=== PATIENT | female | born 1990 | race Caucasian/White ===

== ENCOUNTER 2018-02-01 21:43 | Inpatient (IN) | payer BC, OTHER ==
[~2018-02-01] VITALS: Ht 172.7 cm; Wt 74.8 kg
--- NOTE | 2018-02-01 22:50 | NUR ---
INTAKE ASSESSMENT BP: 101/65, HR: 87, RR:16, SpO2: 98%, T:98.0 Pt is in stable condition and able to be admitted on the unit. Unit protocols regarding medications were explained. Pt verbalized understanding. Will continue admission upon arrival on the unit.
[2018-02-01] MEDS ORDERED: HYDROXYZINE PAMOATE 25 MG CAPSULE PO PRN (23:00)
[2018-02-01] MEDS ORDERED: ONDANSETRON 4 MG/2 ML VIAL IM PRN (23:00)
[2018-02-01] MEDS ORDERED: LOPERAMIDE HCL 2 MG CAPSULE PO PRN ×2 (23:00)
[2018-02-01] MEDS ORDERED: MAGNESIUM HYDROXIDE 30 ML LIQUID UDC PO PRN (23:00)
[2018-02-01] MEDS ORDERED: MIRALAX 17 GM POWD.PACK PO PRN (23:00)
[2018-02-01] MEDS ORDERED: MAG HYDROX/AL HYDROX/SIMETH 30 ML LIQUID UDC PO PRN (23:00)
[2018-02-01] MEDS ORDERED: IBUPROFEN 600 MG TABLET PO PRN (23:00)
[2018-02-01] MEDS ORDERED: ONDANSETRON ODT 4 MG TAB.RAPDIS SL PRN (23:00)
[2018-02-01] MEDS ORDERED: BUPRENORPHINE HCL 2 MG TAB.SUBL SL PRN (23:00)
[2018-02-01 23:24] LABS: *URINE HCG, QUAL NEGATIVE (NEGATIVE)
--- NOTE | 2018-02-01 23:30 | NUR ---
ADMISSION NOTE Pt arrived ambulatory accompanied by a DOCUMENT REVIEW ATTORNEY at [id number]. Pt is a 27 year old female admitted on 02/02/18 for medically supervised withdrawal from Opiates. Pt is full code with allergies to Rocephin and Bactrim. She reports a PMHx of anxiety, depression " I was diagnosed when I was was 11 years old" and Panic disorder " I was diagnosed in 2014." " I also have a history of Crohns disease diagnosed when I was about 7 years old. I take Remecaid infusions for that. Then I got the ileostomy in 2014. I got my thyroid removed by radiation in 2013, so I take thyroid medication. 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 I was also diagnosed with polycystic ovarian syndrome in 2015" Pt noted to be alert and oriented x4. Speech is clear and audible. Pt able to answer interview questions. Pt denies withdrawal symptoms and reports " I don't really feel major withdrawal symptoms from Heroin yet." She complains of body aches, anxiety, and difficulty sleeping. She appears to be disheveled with slumped posture,flat affect and feelings of low self esteem. Pt was recently at the hospital one week ago for surgery. Pt states " I was at [facility] for surgery. They tried to reverse my ileostomy but it wouldn't fuse together. I've been in the hospital for about a month." She is noted with ileostomy bag on the right side. She brought in her own supplies of ostomy bags and gauze. She denies any history of abuse. She denies having a PCP or a psychiatrist. She brought in home medications of Fluconazole 200 mg, Vitamin D3 2,000 unit,Levothyroxine 100 mcg, Tri-Lo Sprintec, Simethicone, Sodium Citrate 30 mL, and Spironolactone 25 mg. Medications have been reconciled. She reports having an overdose from Heroin. She stated " I overdosed in 2016 and I got Narcan but I didn't go to the hospital." Pt denies history of seizures, or black outs. She also denies history of SI and 5150. Pt reports she started using Heroin at 17 years old. She stated " I was just in a lot of pain and discomfort, so I just started using it" She is currently unemployed and lives at a sober living [facility]. She has been to multiple treatment centers, pt states " I was at [facility] and I've been there since July 2017" She reports that she has had " at least 5 " attempts at sobriety. She reported her most recent one was for 1 year and she relapsed 1 month ago. She reported she wants to get sober because, "I like being sober." She states her cause for relapse was " I was in the hospital and they were giving me pain killers. Then they had to stop the pain killers because of my history with opiates" She states her triggers for relapse are "the pain that I'm in." She states her barrier to staying sober is the pain "it's hard to manage sometimes. I waited two years to have this surgery and it didn't work" She states, " The last detox I was at was in 2014, I cant remember what it's called. I also detoxed myself when I went [facility]- Jul 2017" Pt states her support system are her parents. She denies family history of substance abuse. Pt reports after detox " I want to go back to the sober living I was at and go to [facility]" She reports using substances has affected her life because "well, I went to penitentiary and now I'm on probation." She describes her current use as: 1. Heroin IV/smoke 1 gram daily x 5 days. Last dose 0.2 gram IV on 02/01/18 at 1000. She states" I only started using the Heroin after I got out of the hospital, so its only been a few days that I've really been using it. But I'll either smoke it or shoot it" 2. Oxycodone PO 10 mg daily every 6 hours x 2 weeks. Last dose: 10 mg PO on 01/28/18. Pt states " I was receiving the Oxycodone when I was in the hospital after my surgery." 3. Morphine IV pump- " I had this when I was in the hospital for the first two weeks, it was a pump so I don't really know the dosage." Pt describes her withdrawal symptoms as: " I usually have really bad stomach problems, nausea, body aches, weakness, fatigue and abdominal cramps." Upon assessment, Heart rate regular. Denies chest pain or SOB. PERRLA, breathing is even and unlabored, lung sounds clear. Abdomen is soft and non-distended. Bowel sounds present in right quadrant. Pt's skin is warm, dry and intact. Pt noted with left and right side open skin related to drains being placed after her ileostomy reversal surgery. Picture taken and placed in the chart. Small amount of drainage noted, no bleeding. Pt also noted with surgical incision to midline abdominal section.No bleeding noted. MD aware of pt's admission. Pt oriented to room and unit. Safety measures in place. Will continue to monitor.
--- NOTE | 2018-02-01 23:35 | NUR ---
LAB Pe Electrical Engineer unable to draw labs, will try again in the morning.
[2018-02-02] VITALS: BP 95/64
[2018-02-02] MEDS: METHOCARBAMOL 750 MG TABLET PO PRN ×3 (00:03→22:54)
[2018-02-02] MEDS: diphenhydrAMINE 50 MG CAPSULE PO PRN (00:03)
[2018-02-02] MEDS: CLONIDINE HCL 0.1 MG TABLET PO PRN ×2 (00:03→08:37)
--- NOTE | 2018-02-02 00:03 | NUR ---
PRN BENADRYL/ROBAXIN/CLONIDINE Pt complains of inability to fall asleep, body aches and anxiety. PRN Benadryl, Robaxin and Clonidine administered as ordered. Safety measures in place. Will monitor effectiveness.
[2018-02-02] MEDS ORDERED: SIME125T52 PO (00:57)
[2018-02-02] MEDS ORDERED: SPIR25TA6 PO (00:57)
[2018-02-02] MEDS ORDERED: [UNRECOGNIZED DRUG - CODE] MC (00:57)
[2018-02-02] MEDS ORDERED: FLUC200T8 PO (00:57)
[2018-02-02] MEDS ORDERED: CHOL200016 PO (00:57)
[2018-02-02] MEDS ORDERED: LEVO100T10 PO (00:57)
[2018-02-02] MEDS ORDERED: NORG1TAB82 PO (00:57)
--- NOTE | 2018-02-02 01:03 | NUR ---
PRN BENADRYL/ROBAXIN AND CLONIDINE REASSESSMENT PRN medications effective. Pt is lying in bed with eyes closed noted to be asleep. Breathing is even and unlabored, safety measures in place. Will monitor.
[2018-02-02 01:47] LABS: *AMPHETAMINE, URINE NEGATIVE (NEGATIVE); *BARBITURATE, URINE NEGATIVE (NEGATIVE); *CANNABINOID, URINE NEGATIVE (NEGATIVE); *COCCAINE, URINE NEGATIVE (NEGATIVE); *OPIATE, URINE POSITIVE (NEGATIVE); *PHENCYCLIDINE SCREEN,URINE NEGATIVE (NEGATIVE)
[2018-02-02 04:00] VITALS: BP 105/68
--- NOTE | 2018-02-02 04:00 | NUR ---
COWS DEFERRED 0400 COWS deferred d/t pt lying in bed with eyes closed noted to be asleep. Breathing is even and unlabored, safety measures in place. Will monitor.
--- NOTE | 2018-02-02 07:17 | NUR ---
END OF SHIFT Pt is a 27 year old female admitted on 02/01/18 for Opiate withdrawal. She remains alert and oriented x4. She complained of body aches, anxiety and difficulty falling asleep. She denied withdrawal symptoms and did not require PRN Subutex during the shift. At 0003 she received PRN Benadryl, Robaxin and Clonidine. She slept a total of 5 hrs, Intake: 355mL, Void:x2, BM:0, Unable to accurately assess COWS. Breathing is even and unlabored, safety measures in place. Endorsed to AM shift.
[2018-02-02 08:00] VITALS: BP 95/45
--- NOTE | 2018-02-02 08:00 | NUR ---
Start of Shift Notes/COWS Assessment: Received patient in her room. Alert and verbally responsive. Flat affect. Encouraged to verbalize her feelings and concerns Appears disheveled and unkempt. Hair uncombed. Garbage seen in room and is odorous. Encouraged to maintain personal hygiene and space. She is noted to be diaphoretic with facial flushing. She is currently complaininf of 5/10 body aches, abdominal cramping and chills and hot flashes related to withdrawal. Current COWS 10 upon this assessment. Patient is a 27 year old female admitted for opiate withdrawal who is currently on PRNs to manage symptoms of opiate withdrawal. Per night report, patient was given PRN Benadryl, Robaxin and Clonidine during the night. Last COWS 4, slept for 5 hours. Educated patient on her current plan of care for the day na her medication regimen. Encourage oral fluid intake and encouraged group participation to learn new skills to prevent relapse. All needs met and attended. Will continue to monitor closely.
[2018-02-02 08:26] LABS: BASOPHILS # (AUTO) 0.1 K/uL (0.0-8.0); BASOPHILS % (AUTO) 0.9 % (0.0-2.0); EOSINOPHILS # (AUTO) 0.3 K/uL (0.0-0.7); EOSINOPHILS % (AUTO) 3.5 % (0.0-7.0); HEMATOCRIT 34.4 % (31.2-41.9); HEMOGLOBIN 11.7 g/dL (10.9-14.3); LYMPHOCYTES # (AUTO) 3.8 K/uL (20.0-40.0); LYMPHOCYTES % (AUTO) 40.8 % (20.5-51.5); MEAN CORPUSCULAR HEMOGLOBIN 30.3 uug (24.7-32.8); MEAN CORPUSCULAR HGB CONC 34 g/dL (32.3-35.6); MEAN CORPUSCULAR VOLUME 89.3 fL (75.5-95.3); MONOCYTES # (AUTO) 0.8 K/uL (2.0-10.0); MONOCYTES % (AUTO) 8.4 % (0.0-11.0); NEUTROPHILS # (AUTO) 4.3 K/uL (1.8-8.9); NEUTROPHILS % (AUTO) 46.4 % (38.5-71.5); PLATELET COUNT (AUTO) 383 K/uL (179-408); RED BLOOD CELL COUNT(AUTO) 3.85 MIL/uL (3.63-4.92); WHITE BLOOD COUNT (AUTO) 9.2 K/uL (3.8-11.8)
[2018-02-02 08:31] LABS: ETHANOL < 3 MG/DL (0-0)
[2018-02-02] MEDS: DICYCLOMINE HCL 20 MG TABLET PO PRN ×2 (08:37→22:54)
--- NOTE | 2018-02-02 08:37 | NUR ---
Clonidine/Bentyl/Robaxin PO given: PRN Clonidine, Bentyl and Clonidine given for complains of 5/10 body aches, abdominal cramping, sweating, anxiety, and chills and hot flashes. Will monitor for effectiveness.
[2018-02-02 08:52] LABS: ALANINE AMINOTRANSFERASE 34 U/L (14-59); ALKALINE PHOSPHATASE 142 U/L (50-136); AMYLASE 67 U/L (25-115); ASPARTATE AMINOTRANSFERASE 28 U/L (15-37); BILIRUBIN,TOTAL 0.4 mg/dL (0.2-1.0); CARBON DIOXIDE 26 mmol/L (21-32); CHLORIDE 100 mmol/L (98-107); CREATININE 0.8 mg/dL (0.6-1.3); GLUCOSE 92 mg/dL (74-106); LIPASE 266 U/L (73-393); MAGNESIUM 1.6 mg/dL (1.8-2.4); POTASSIUM 4.1 mmol/L (3.5-5.1); TOTAL PROTEIN, SERUM 9.3 g/dL (6.4-8.2); UREA NITROGEN, BLOOD 9 mg/dL (7-18)
[2018-02-02] MEDS ORDERED: TUBERCULIN,PURIF.PROT.DERIV. 5 TU/0.1 ML TEST ID ONE (09:00)
--- NOTE | 2018-02-02 09:37 | NUR ---
Re-assessment: Clonidine/Bentyl/Robaxin Patient verbalizes relief from anxiety, chills, hot flashes and abdominal cramping. She verbalizes her pain is now a 2 out of 10. PRN Clonidine, Bentyl and Robaxin were effective.
[2018-02-02 09:45] LABS: THYROID STIMULATING HORMONE 1.993 mIU/mL (0.358-3.740)
[2018-02-02 12:00] VITALS: BP 91/51
--- NOTE | 2018-02-02 12:00 | NUR ---
Start of Shift Notes/COWS Assessment: COWS , patient continues to present with s/s of withdrawal m/b myalgia, anxiety, agitation, stomach cramps and fatigue. Support provided. Offered PRNs. Oral fluids encouraged. Patient was unable to participate in group at this time. Will continue to monitor. Addendum: 02/02/18 at 1209 by OG HUMPHREYS LVN error in charting
--- NOTE | 2018-02-02 12:00 | NUR ---
COWS Assessment: COWS 9, patient continues to present with s/s of withdrawal m/b myalgia, anxiety, agitation, stomach cramps and fatigue. Support provided. Offered PRNs. Oral fluids encouraged. Patient was unable to participate in group at this time. Will continue to monitor.
[2018-02-02] MEDS: ACETAMINOPHEN 325 MG TABLET PO PRN (13:38)
[2018-02-02] MEDS: BUPRENORPHINE HCL 2 MG TAB.SUBL SL SCH ×2 (13:38→22:54)
--- NOTE | 2018-02-02 13:38 | NUR ---
COWS Assessment/Tylenol 650 mg/Vistaril PO given: COWS re-assessed. Noted with COWS 15 at this time. Patient is noted with facial flushing, sweating, gross tremors, anxiety, agitation, yawning, body aches and complains of generalized discomfort. Medicated patient with Tylenol 650 mg PO and Vistaril PO as ordered. 2-day Subutex taper was started at this time. Will continue to monitor.
[2018-02-02] MEDS: FLUCONAZOLE 200 MG TABLET PO SCH (13:59)
[2018-02-02] MEDS: LEVOTHYROXINE SODIUM 100 MCG TABLET PO SCH (13:59)
[2018-02-02] MEDS: TRI LO SPRINTEC PO SCH (14:00)
[2018-02-02] MEDS: SPIRONOLACTONE 25 MG TABLET PO SCH (14:00)
--- NOTE | 2018-02-02 14:38 | NUR ---
Re-assessment: Tylenol/Vistaril Patient verbalizes relief from body aches and anxiety. PRN Tylenol and Vistaril were effective.
[2018-02-02] MEDS ORDERED: MAGNESIUM OXIDE 400 MG TABLET PO ONE (15:00)
[2018-02-02 16:00] VITALS: BP 105/73
--- NOTE | 2018-02-02 16:00 | NUR ---
COWS Assessment: COWS 10, patient's COWS score decreased from a 13, but she continues to present with pupil dilation, gross tremors, anxiety, sweating, fatigue, malaise, myalgia and generalized discomfort. PRNs offered. Support provided. Patient was unable to participate in group and activities due to her withdrawal symptoms. Will continue to monitor.
--- NOTE | 2018-02-02 19:20 | NUR ---
End of Shift Notes: Patient was started on a 2-day Subutex taper to manage symptoms related to opiate withdrawal. VS monitored closely. No significant abnormalities noted. Withdrawal symptoms were closely monitored Initial COWS 10, patient presented with anxiety, agitation, muscle cramps, restlessness, abdominal cramping, chills, hot flashing, and sweats. Medicated patient with Robaxin , Bentyl and Clonidine as ordered at 0837 with help after 1 hour . At 1338, patient was medicated with Tylenol 650 mg PO and Vistaril 25mg as ordered with help. Patient's COWS score increased to 15 at 1337. Last COWS 10 at 1600. Abdominal dressing to patient's mid abdomen intact. No draining noted. Patient was unable to participate in group and activities due to her withdrawal symptoms. Appetite fair. Patient prefers to stay in his room and sleep. All needs met and attended. Will continue to monitor closely.
[2018-02-02 20:00] VITALS: BP 101/62
--- NOTE | 2018-02-02 20:00 | NUR ---
Start of Shift Patient 27 year old female admitted 02/01/2018 for Heroin and Oxycodone. Patient has a history of anxiety, depression, panic disorder, crohns disease, valley fever, thyroid removal 2013, and polycystic ovarian syndrome 2014. Patient is full code and has a regular diet. Patient has 2 closed abdominal wound incision from recent surgery covered with clean and dry dressing. Patient also with ileostomy bag in the right upper quadrant. Per report, wound care consult will be done tomorrow. Patient reported she feels flushed, tremors, and body aches. Last COWS was 10. Patient is on fall precautions, safety measures in place, side rails up X2, bed locked in low position, call light within reach. Reeducated plan of care with patient and medication side effects. Will continue to monitor.
--- NOTE | 2018-02-02 22:55 | NUR ---
PRN Bentyl and PRN Robaxin Patient c/o abdominal cramping and generalized muscle pain=7/10. Administered Bentyl 20 mg PO PRN and Robaxin 750 mg PO PRN as ordered. Will reassess.
--- NOTE | 2018-02-02 23:55 | NUR ---
Re-assessment PRN Gee and Meenu Patient stated pain level 3/10, no facial grimacing noted. Respiration even and unlabored. Safety measure in placed, bed locked in the lowest position, side rails up x2, and call light within reach. Will continue to monitor.
[2018-02-03] VITALS: BP 105/58
[2018-02-03 04:00] VITALS: BP 101/61
[2018-02-03 06:07] LABS: HEPATITIS B SURFACE AG Negative (Negative)
[2018-02-03] MEDS: LEVOTHYROXINE SODIUM 100 MCG TABLET PO SCH (07:05)
--- NOTE | 2018-02-03 07:14 | NUR ---
End of shift Patient 27 year old female admitted 02/01/2018 for Heroin and Oxycodone. Patient is on a 2 day Subutex taper for opiate withdrawal. Patient has 2 closed abdominal wound incision from recent surgery, with wound dressing observed intact, dry and clean. With wound care consult to be done today. Patient continues to report abdominal cramps and body aches. Patient is also noted to be flushed, and observed to have tremors. Last COWS was 11. Medicated patient with PRN Robaxin 750 mg, Bentyl 20mg at 2254. Patient participated in group. Patient slept for 4 hours. Patient is on fall precautions, safety measures in place, side rails up X2, bed locked in low position, call light within reach. Endorse to AM shift for continuity of care.
[2018-02-03 08:00] VITALS: BP 90/60
--- NOTE | 2018-02-03 08:20 | NUR ---
START OF SHIFT: Received Pt A/O X 4. She presents with blunted affect and depressed mood. She reports body pain 6/10 , muscle aches,stomach cramps, sweats,anxiety and restlessness. COWS 12. modified Subutex taper in progress to manage s/s of w/d. PRN Tylenol 650 mg PO and Robaxin 750 mg PO given to manage aches and pain. Will monitor effectiveness of PRN meds. Encouraged increased fluids to assist in facilitating detox process. Will continue to monitor and offer support.
[2018-02-03] MEDS: METHOCARBAMOL 750 MG TABLET PO PRN ×2 (08:45→22:12)
[2018-02-03] MEDS: ACETAMINOPHEN 325 MG TABLET PO PRN (08:46)
[2018-02-03] MEDS: FLUCONAZOLE 200 MG TABLET PO SCH (08:46)
[2018-02-03] MEDS: TRI LO SPRINTEC PO SCH (08:47)
[2018-02-03] MEDS: SPIRONOLACTONE 25 MG TABLET PO SCH (08:47)
[2018-02-03] MEDS ORDERED: [UNRECOGNIZED DRUG - OTHER] SL PRN (09:00)
[2018-02-03] MEDS: BUPRENORPHINE HCL 2 MG TAB.SUBL SL SCH ×3 (09:19→22:03)
--- NOTE | 2018-02-03 09:20 | NUR ---
Pt states PRN Tylenol and PRN Robaxin was effective. She states the aches and pains have lessened.
--- NOTE | 2018-02-03 09:43 | NUR ---
Therapist prompted client to attend twice daily group therapy sessions.
--- NOTE | 2018-02-03 11:50 | NUR ---
Pt changed her ostomy and wound nurse was assisted with dressing change and new orders for wound care.
[2018-02-03 12:00] VITALS: BP 118/74
--- NOTE | 2018-02-03 12:23 | NUR ---
WOUND CARE CONSULT: PT PRESENTS WITH ABDOMINAL INCISION WITH OPEN WOUNDS, RT LOWER ABDOMEN WOUND AND DRAIN SITES TO RT AND LEFT ABDOMEN, PRESENT ON ADMISSION. NO SIGNS OF INFECTION NOTED. ILEOSTOMY FUNCTIONING WELL. PT DOES HER POUCH CHANGES. PT STATES WILL FOLLOW UP WITH HER PRIMARY SURGEON ON THURSDAY. RECOMMENDATIONS MADE FOR WOUND CARE AND SKIN PROTECTION. DISCUSSED WITH NURSING STAFF. WILL SEE PRN. Cassy Underwood IN AGREEMENT WITH PLAN OF CARE. Addendum: 02/03/18 at 1225 by KIRT CASTAÑEDA RN Amended: Links added.
[2018-02-03] MEDS ORDERED: BUPRENORPHINE HCL 2 MG TAB.SUBL SL SCH (15:00)
[2018-02-03 16:00] VITALS: BP 104/65
--- NOTE | 2018-02-03 19:03 | NUR ---
END OF SHIFT: Pt continues on modified Subutex taper to manage s/s of w/d which include anxiety,sweats,body aches,stomach cramps and irritability.Last CIWA 5. Ileostomy bag was changed and intact. Wound care done and dressings changed. Pictures in chart. New orders per wound care nurse for wound care daily and PRN. she attended some groups and states the detox meds are effective. Will pass shift report to oncoming night nurse.
--- NOTE | 2018-02-03 19:30 | NUR ---
START OF SHIFT Patient is a 27-year-old female admitted on 02/01/18 for opiate withdrawal. Patient is currently on a modified 3-day Subutex taper, scheduled to end tomorrow; patient is tolerating well. Patient's last COWS was 10 per endorsement. Patient received PRN Robaxin and PRN Tylenol earlier today; both noted to be effective. Upon assessment, patient is alert and oriented x4. Patient appears anxious and sad. Patient complains of stomachache and generalized body aches. Patient is on fall and seizure precautions with no history of seizure. Safety measures in place, side rails up x2, bed locked in low position, call light within reach. Medications scheduled, will continue to monitor.
[2018-02-03 20:00] VITALS: BP 108/71
--- NOTE | 2018-02-03 20:00 | NUR ---
COWS 10 Patient complains of body aches and stomachache. Patient reports anxiety and restlessness. Current COWS score is 10. Will administer meds as ordered; will continue to monitor.
[2018-02-03] MEDS: HYDROXYZINE PAMOATE 25 MG CAPSULE PO PRN (22:12)
[2018-02-03] MEDS: diphenhydrAMINE 50 MG CAPSULE PO PRN (22:12)
--- NOTE | 2018-02-03 22:12 | NUR ---
PRN ROBAXIN, BENADRYL, & VISTARIL Patient reports difficulty sleeping, anxiety, and body aches. PRN Benadryl, Vistaril, and Robaxin given PO. Safety measures in place, side rails up x2, bed locked in low position, call light within reach. Will monitor for effectiveness.
--- NOTE | 2018-02-03 23:12 | NUR ---
PRN ROBAXIN, BENADRYL, & VISTARIL REASSESSMENT Patient reports some improvement in symptoms, specifically anxiety. PRN Vistaril noted to be effective. Patient states the PRN Robaxin and PRN Benadryl were mildly effective. Safety measures in place, side rails up x2, bed locked in low position, call light within reach. Will continue to monitor.
[2018-02-04] VITALS: BP 96/58
--- NOTE | 2018-02-04 | NUR ---
COWS 9 Patient complains of stomachache, body aches, anxiety, and stuffy nose. Patient has fine tremors and is slightly diaphoretic. Current COWS is 9. Will continue to monitor.
[2018-02-04] MEDS: DICYCLOMINE HCL 20 MG TABLET PO PRN (00:55)
--- NOTE | 2018-02-04 00:55 | NUR ---
PRN MOTRIN & BENTYL Patient complains of 6/10 body aches and 7/10 stomach cramps. PRN Motrin and PRN Bentyl given PO. Safety measures in place, side rails up x2, bed locked in low position, call light within reach. Will monitor for effectiveness.
--- NOTE | 2018-02-04 01:55 | NUR ---
PRN MOTRIN & BENTYL REASSESSMENT Patient is observed sleeping in bed with eyes closed, respirations even and unlabored. Unable to reassess for PRN effectiveness at this time. Safety measures in place, side rails up x2, bed locked in low position, call light within reach. Will continue to monitor.
[2018-02-04 04:00] VITALS: BP 94/54
--- NOTE | 2018-02-04 04:00 | NUR ---
COWS DEFERRED COWS deferred due to patient sleeping; to be assessed while patient is awake. Respirations even and unlabored. Safety measures in place, side rails up x2, bed locked in low position, call light within reach. Will continue to monitor.
--- NOTE | 2018-02-04 07:15 | NUR ---
END OF SHIFT Patient is a 27-year-old female admitted on 02/01/18 for opiate withdrawal. Patient is currently on a modified 3-day Subutex taper, today is that last day of taper; patient is tolerating well. Patient's last COWS was 9. Patient received the following PRN medications: Robaxin, Benadryl, Vistaril, Motrin and Bentyl. Per patient, only the PRN Vistaril was noticeably effective. Patient slept for 6 hours, total intake of 1,250mL, void x2, stool x2. Patient is on fall and seizure precautions with no history of seizure. Safety measures in place, side rails up x2, bed locked in low position, call light within reach. Will endorse to day shift.
[2018-02-04] MEDS: LEVOTHYROXINE SODIUM 100 MCG TABLET PO SCH (07:26)
--- NOTE | 2018-02-04 07:40 | NUR ---
START OF SHIFT Endorse rcvd from ongoing nurse, PRN Motrin 600mg PO generalized body aches, Robaxin 750mg PO for myalgia, Bentyl 20mg PO for abd spasms, Vistaril 50mg PO for anxiety, Benadryl 50mg PO for insomnia, client slept 7 hrs. Last CIWA 9 @ 2400. Client is in bed, lying on back, she sounds asleep, easy to arouse. RR 16, even, non-labored. Call light within reach. Will continue to monitor.
[2018-02-04 08:26] VITALS: BP 96/52
[2018-02-04] MEDS ORDERED: BUPRENORPHINE HCL 2 MG TAB.SUBL SL SCH (09:00)
--- NOTE | 2018-02-04 09:15 | NUR ---
Zero induration noted at L forearm.
[2018-02-04] MEDS: SPIRONOLACTONE 25 MG TABLET PO SCH (09:38)
[2018-02-04] MEDS: TRI LO SPRINTEC PO SCH (09:38)
[2018-02-04] MEDS: FLUCONAZOLE 200 MG TABLET PO SCH (09:38)
[2018-02-04] MEDS: HYDROXYZINE PAMOATE 25 MG CAPSULE PO PRN ×2 (10:00→21:42)
[2018-02-04] MEDS: METHOCARBAMOL 750 MG TABLET PO PRN ×2 (10:00→21:42)
--- NOTE | 2018-02-04 10:00 | NUR ---
COWS 10 & PRN Vistaril 50mg PO, Robaxin 750mg PO Client is in bed, she appears disheveled, dark circles unders eyes, dry, chapped lips, depressed mood, flat affect, tremors felt, clammy skin, and difficulty concentration. Client reports anxiety, nausea, abdominal cramps, decreased appetite, sweats, generalized body aches 7/10, and fatigue. Schedule Subutex 2mg SL and above PRN's administered. Encourage client to attend group therapy to learn skills to maintain sober. Call light within reach.
--- NOTE | 2018-02-04 11:00 | NUR ---
Reassess PRN Vistaril 50mg, Robaxin 750mg client reports slight relief from anxiety and myalgia.
[2018-02-04 12:00] VITALS: BP 104/66
--- NOTE | 2018-02-04 12:00 | NUR ---
COWS 9 Client continue to present with anxiety, flat affect, avoidant gaze. She reports feeling agitated, anxious, difficulty concentrating, and fatigue. Client decline PRN medications for management of anxiety. MD notified. Call light within reach.
--- NOTE | 2018-02-04 12:15 | NUR ---
CIWA 10 Client continue to present with anxiety, flat affect. She repots feeling agitated, anxious, a sense of panic, difficulty concentrating, and fatigue. Client decline PRN medications for management of anxiety. CAIN and notified. Call light within reach. Addendum: 02/04/18 at 1325 by DONYA MART RN wrong client
--- NOTE | 2018-02-04 12:57 | NUR ---
Therapist prompted client to attend twice daily group therapy sessions.
[2018-02-04 16:55] VITALS: BP 100/60
--- NOTE | 2018-02-04 17:00 | NUR ---
COWS 9 & wound treatment Client continue to present with anxiety, flat affect, avoidant gaze. She reports feeling agitated, anxious, difficulty concentrating, and fatigue. Wpund treatment to RT & LT abd drain sites, Mid Abd incision with open wound, and RT lower Abd wound (distal to ostomy) scat drainage noted only at last site. Client able to do dressing change and cleaning wound. Pictures taken. Client decline PRN medications for management of anxiety. MD notified. Call light within reach.
--- NOTE | 2018-02-04 19:25 | NUR ---
END OF SHIFT Endorse client to incoming nurse, client is in group therapy, a/o x 4. Client continues to present with anxiety, nausea, difficulty concentrating, and fatigue. Last COWS 9 @ 1700. Client completed 3 day Subutex taper. PRN administered and noted per protocol. Client is schedule for DC to [facility] tomorrow am. Adequate PO fluid intake 2450mL, void x 3. Consumes 75-100% of meals. Call light within reach.
--- NOTE | 2018-02-04 19:26 | NUR ---
Start of shift note Received report from day shift nurse. Pt is a 27 yo female, A+Ox4, presenting to [facility] for medically supervised Opiate withdrawal. Pt noted with body aches, sweat/chills, irritability, and anxiety. Pt has HX of anxiety, depression, panic disorder, Chron's disease, thyroid removal, ileostomy, and polycystic ovarian syndrome which will be monitored during shift. Pt has completed 3 day Subutex taper, tolerated well, and is due for discharge tomorrow. Respirations even and unlabored. Will continue to monitor.
[2018-02-04 20:15] VITALS: BP 103/68
--- NOTE | 2018-02-04 20:15 | NUR ---
COWS Assessment COWS: 6. Pt noted with pulse 72, sweat on brow, restlessness, mild diffuse discomfort, stuffy nose, stomach cramps, and anxiety. Respirations even and unlabored. Will continue to monitor.
[2018-02-04] MEDS ORDERED: METH-406 PO (21:16)
[2018-02-04] MEDS ORDERED: HYDR-3895 PO (21:16)
[2018-02-04] MEDS ORDERED: DIPH50CA37 PO (21:16)
[2018-02-04] MEDS ORDERED: CLON0.1T14 PO (21:16)
[2018-02-04] MEDS: diphenhydrAMINE 50 MG CAPSULE PO PRN (21:42)
--- NOTE | 2018-02-04 21:42 | NUR ---
PRN Benadryl, Vistaril, and Robaxin Pt c/o general body aches 8/10, anxiety, and inability to sleep. PRN Benadryl, Vistaril, and Robaxin given and tolerated well. Will reassess within 1 HR. Will continue to monitor.
--- NOTE | 2018-02-04 22:42 | NUR ---
PRN Benadryl, Vistaril, and Robaxin Reassessment Medications effective. Pt expresses reduction of body aches to 4/10, reduction of anxiety, and is resting well in bed. No s/s of ASE noted at this time. Respirations even and unlabored. Will continue to monitor.
--- NOTE | 2018-02-05 00:15 | NUR ---
V/S refused and COWS assessment deferred for sleep. Respirations even and unlabored. Will continue to monitor.
--- NOTE | 2018-02-05 04:05 | NUR ---
V/S refused and COWS assessment deferred for sleep. Respirations even and unlabored. Will continue to monitor.
[2018-02-05] MEDS: LEVOTHYROXINE SODIUM 100 MCG TABLET PO SCH (06:49)
--- NOTE | 2018-02-05 07:00 | NUR ---
End of shift note Pt was continuously noted with restlessness, anxiety, and body aches. Pt remained in room for majority of shift except to go smoke on smoking patio and to get food from kitchen. Pt remained cooperative and compliant with all aspects of treatment. Pt was given PRN Benadryl, Vistaril, and Robaxin @2141. Pt has completed 3 day Subutex taper, tolerated well, and is due for discharge today. Pt slept for a total of 5 HRS. Last COWS: 6 @2014. Respirations even and unlabored. Will endorse to day shift nurse.
[2018-02-05 08:00] VITALS: BP 90/56
--- NOTE | 2018-02-05 08:00 | NUR ---
START OF SHIFT Pt is a 27yr old female, AA&Ox4. Pt was admitted on 02/01/18 for Opiate withdrawal and completed a 3 day modified Subutex taper as ordered. Received report from security shift manager nurse. Pt received Benadryl PRN, Vistaril PRN and Robaxin PRN during the night. Pt slept for 5 hrs. Last COWS score was 6 at 2000. Pt is currently in bed resting with respirations even and unlabored. Pt is noted with flat affect and flushed and clammy skin. Pt is guarded and avoidant. Pt was encouraged increase fluid intake for hydration. COWS score this morning is 4. Pt is to be discharged today to [facility]. Safety precautions observed. Call light is within reach. Will continue to f/u.
[2018-02-05] MEDS ORDERED: BUPRENORPHINE HCL 2 MG TAB.SUBL SL SCH (09:00)
--- NOTE | 2018-02-05 09:00 | NUR ---
REFUSED TREATMENT Pt refused to have wound treatment done as ordered. pt was educated the importance of having the wound treatment done. Pt was able to verbalize understanding but continue to refuse. Will continue to monitor.
[2018-02-05] MEDS: SPIRONOLACTONE 25 MG TABLET PO SCH (09:05)
[2018-02-05] MEDS: TRI LO SPRINTEC PO SCH (09:05)
[2018-02-05] MEDS: FLUCONAZOLE 200 MG TABLET PO SCH (09:05)
--- NOTE | 2018-02-05 10:00 | NUR ---
DISCHARGE NOTE Pt is a 27yr old female, AA&Ox4. Pt was admitted on 02/01/18 for Opiate withdrawal and completed a 3 day modified Subutex taper as ordered. Pt has been cooperative with medication regimen and plan of care. pt was noted with flat affect and c/o feeling anxious. No SI/HI noted. Pt was educated on discharged summary and prescriptions. Pt was able to verbalize understanding. Pt was discharged off the unit at 0953 in stable condition. Pt was discharged to [facility]. Pt left with all belongings, valuables and home medications.
== END 2018-02-05 09:53 | disposition home or self-care (01) | DRG 895 ==
LOC: SRC 22:05
PROVIDERS: ADMIT Family Medicine Addiction Medicine; ATTEND Family Medicine Addiction Medicine
DX: F11.23 Opioid dependence with withdrawal (principal); K50.90 Crohn's disease, unspecified, without complications; Z83.79 Family history of other diseases of the digestive system; F17.210 Nicotine dependence, cigarettes, uncomplicated; F41.0 Panic disorder [episodic paroxysmal anxiety]; Z98.0 Intestinal bypass and anastomosis status; Z93.2 Ileostomy status
CPT/HCPCS: 36415; 70030-TC; 80307; 80361; 83690; 83735; 84443; 84703; 85025; 86580; 86592; 86705; 86803; 87340; 87806; G0480; Q0163